=== PATIENT | female | born 1980 | race Caucasian/White ===

== ENCOUNTER 2018-02-25 11:08 | Emergency (ER) | payer BC ==
--- NOTE | 2018-02-25 11:14 | EDM.PDOC ---
ED HPI GENERAL MEDICAL PROBLEM - General Chief Complaint: General Stated Complaint: migraine BRADLEY Time Seen by Provider: 02/25/18 11:14 Source of Information: Reports: Patient, Family (), Old Records ([facility] chart/EMR) History Limitations: Reports: No Limitations - History of Present Illness INITIAL COMMENTS - FREE TEXT/NARRATIVE: The patient was brought to the emergency room via private automobile for evaluation of recurrent migraine headaches with bilateral frontal headaches initially starting behind the right eye at about midnight this evening. She has a distant history of migraine headaches as below with increased frequency on an every 2 months basis since 05/29/17. She did recently have a negative CT scan of the head as below. Patient does complain of some nausea without emesis and photophobia with today's headache similar to previous episodes. No recent history of abdominal pain, heartburn, diarrhea, melena, gross hematochezia, or any food intolerance, including fatty foods, etc.. The patient also denies any recent fever, cough, wheezing, dyspnea, etc.. She currently rates her headache at 7/10. Note that she did take to OTC Aleve 8 AM this morning. Onset: Today, Gradual Onset Date: 02/25/18 Onset Time: 00:00 Duration: Constant, Getting Worse Location: Reports: Head. Denies: Face, Neck, Chest, Abdomen, Back, Radiates to Quality: Reports: Same as Previous Episode, Stabbing, Throbbing Severity: Moderate Improves with: Reports: None Worsens with: Reports: None Context: Reports: Other (As above). Denies: Sick Contact, Trauma Associated Symptoms: Reports: Headaches, Nausea/Vomiting (No emesis). 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 Musculoskeletal History: Reports: Back Pain, Chronic, Osteoarthritis, Other ( See Below). Denies: Fracture Other Musculoskeletal History: Partial lumbarization of S1 by MRI as below. Neurological History: Reports: Headaches, Chronic, Migraines, Other (See Below) Other Neuro History: Initial migraine headaches in her teenage years with neurology consultation at that time and subsequent increased frequency of her migraine headaches since 05/31/17. - Past Imaging History Past Imaging History: Reports: CAT Scan (Negative CT scan of the head on .), MRI (MRI of the lumbar spine on 11/05/13.), Ultrasound (Soft tissue ultrasound of the right axillary region on 12/09/16.) Social & Family History - Family History Neurological: Reports: Migraines, Other (See Below) Other Neurological Family History: Mother with history of migraine headaches. - Tobacco Use Smoking Status *Q: Former Smoker Tobacco Use Within Last Twelve Months: No Years of Tobacco use: 0 Packs/Tins Daily Comment: Experimental during teenage years. Used Tobacco, but Quit: No Smoking Cessation Information Provided To Patient: No Second Hand Smoke Exposure: Yes Source of Second Hand Smoke Exposure: smokes Second Hand Smoke Education Provided: Yes - Caffeine Use Caffeine Use: Reports: None. Denies: Coffee, Energy Drinks, Soda, Tea - Alcohol Use Alcohol Use History: Yes Days Per Week of Alcohol Use: 0 Number of Drinks Per Day: 2 Number of Drinks Per Day Comment: Usually mixed drinks about 35 times per month. No previous DWIs, problems with alcohol abuse, etc. Total Drinks Per Week: 0 Alcohol Use in Last Twelve Months: Yes Alcohol Use Frequency: Socially - Recreational Drug Use Recreational Drug Use: Yes Drug Use in Last 12 Months: No Recreational Drug Type: Reports: Marijuana/Hashish (Experimental as a teenager) . 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 - Physical Exam Exam: See Below Exam Limited By: No Limitations General Appearance: Alert, WD/WN, No Apparent Distress Eye Exam: Bilateral Eye: EOMI, Normal Fundi, Normal Inspection (No nystagmus), PERRL, Other (Mild photophobia) Ears: Normal External Exam, Normal Canal, Hearing Grossly Normal, Normal TMs Nose: Normal Inspection, Normal Mucosa, No Blood Throat/Mouth: Normal Inspection, Normal Lips, Normal Teeth, Normal Gums, Normal Oropharynx, Normal Voice, No Airway Compromise. No: Dysphagia, Perioral Cyanosis Head Exam: Atraumatic, Normocephalic. No: Facial Tenderness, Sinus Tenderness Neck: Normal Inspection, Supple, Non-Tender, Full Range of Motion. No: Lymphadenopathy (L), Lymphadenopathy (R), Thyromegaly Respiratory/Chest: No Respiratory Distress, Lungs Clear, Normal Breath Sounds, No Accessory Muscle Use, Chest Non-Tender. No: Pleural Rub, Retractions Cardiovascular: Normal Peripheral Pulses, Regular Rate, Rhythm, No Edema, No Gallop, No JVD, No Murmur, No Rub. No: Gallop/S3, Gallop/S4, Friction Rub GI/Abdominal: Normal Bowel Sounds, Soft, Non-Tender, No Organomegaly, No Distention, No Abnormal Bruit, No Mass. No: Guarding (Female) Exam: Deferred Rectal (Female) Exam: Deferred Neuro Exam (Abbreviated): Alert, Oriented, CN II-XII Intact, Normal Cognition, Normal Gait, No Motor/Sensory Deficits Back Exam: Normal Inspection, Full Range of Motion. No: Muscle Spasm Extremities: Normal Inspection, Normal Range of Motion, Non-Tender, No Pedal Edema, Normal Capillary Refill. No: Linda's Sign Skin Exam: Warm, Dry, Intact, Normal Color, No Rash. No: Diaphoretic, Wound/ Incision Course - Vital Signs Last Recorded V/S: Last Vital Signs Temp 37.0 C 02/25/18 11:09 Pulse 84 02/25/18 11:09 Resp 16 02/25/18 11:09 BP 140/91 H 02/25/18 11:09 Pulse Ox 100 02/25/18 11:09 Vital Signs - 24 hr 02/25/18 11:09 Temperature [ 37.0 C Oral] Pulse, 84 Peripheral [ Pulse Oximetry] Respiratory 16 Rate Blood Pressure 140/91 H [Left Upper Arm ] O2 Sat by Pulse 100 Oximetry - Orders/Labs/Meds Orders: Active Orders 24 hr Category Date Time Status Peripheral IV Care [RC] . DIRECTED Care 02/25/18 11:19 Active Sodium Chloride 0.9% [Saline Flush] Med 02/25/18 11:18 Active 10 ml FLUSH ASDIRECTED PRN Obtain Past Medical Record [OM.PC] Routine Oth 02/25/18 11:18 Active Peripheral IV Insertion Adult [OM.PC] Routine Oth 02/25/18 11:19 Ordered Medication Orders Sodium Chloride (Saline Flush) 10 ml FLUSH ASDIRECTED PRN PRN Reason: Keep Vein Open Last Admin: 02/25/18 11:58 Dose: 10 ml Labs: None Meds: Medications Generic Name Dose Route Start Last Admin Trade Name Freq PRN Reason Stop Dose Admin Sodium Chloride 10 ml 02/25/18 11:18 02/25/18 11:58 Saline Flush FLUSH 10 ml ASDIRECTED PRN Administration Keep Vein Open Discontinued Medications Generic Name Dose Route Start Last Admin Trade Name Freq PRN Reason Stop Dose Admin Diphenhydramine HCl 50 mg 02/25/18 11:19 02/25/18 11:36 Benadryl IVPUSH 02/25/18 11:20 50 mg ONETIME ONE Administration Ketorolac Tromethamine 15 mg 02/25/18 11:20 02/25/18 11:36 Toradol IVPUSH 02/25/18 11:21 15 mg ONETIME ONE Administration Metoclopramide HCl 20 mg 02/25/18 11:19 02/25/18 11:37 Reglan IVPUSH 02/25/18 11:20 20 mg ONETIME ONE Administration - Radiology Interpretation Free Text/Narrative:: None Departure - Departure Time of Disposition: 13:10 Disposition: Home, Self-Care 01 Condition: Good Clinical Impression: Tobacco abuse counseling Migraine headache Qualifiers: Migraine type: without aura Status migrainosus presence: without status migrainosus Intractability: not intractable Qualified Code(s): G43.009 - Migraine without aura, not intractable, without status migrainosus Osteoarthritis Qualifiers: Osteoarthritis location: multiple joints Osteoarthritis type: primary Qualified Code(s): M15.0 - Primary generalized (osteo)arthritis - Discharge Information *PRESCRIPTION DRUG MONITORING PROGRAM REVIEWED*: Not Applicable *COPY OF PRESCRIPTION DRUG MONITORING REPORT IN PATIENT KARINA: Not Applicable Instructions: Health Risks of Smoking, Diphenhydramine injection, Metoclopramide injection, Migraine Headache, [id number], Ketorolac injection, Recurrent Migraine Headache Referrals: Maribeth Cooper NP [Primary Care Provider] - Forms: ED Department Discharge Additional Instructions: 1. Followup with your regular provider in 10-14 days as directed. Bring these discharge instructions with you to that visit. 2. Tylenol 650 mg by mouth every 4 hours and/or OTC Aleve 1-2 tabs by mouth every 12 hours with food as directed./needed. 3. Sedation precautions with no driving, etc. for 18 hours because of emergency room medications. 4. Ice packs to head and neck, dark and quiet room, etc. as directed until headache resolves. 5. Stop all tobacco use LAURYN as directed/per provided information and consider contacting Quit LIne, etc.. 6. Discuss possible neurology referral, preventative headache medications, etc. with your regular provider at the above follow-up visit 7. Discuss possible additional preventative medications for your headaches with your regular provider as above. Consider OTC magnesium oxide 400 mg every day as headache prevention with diarrhea precautions with this medicatiion as directed. Never initiate medications on your own, however, prior to discussing this with your regular provider. 8. Maintain a food and headache diary on a daily basis and provide this to your regular provider at each visit. - Problem List & Annotations (1) Migraine headache SNOMED Code(s): 51531377 Code(s): G43.909 - MIGRAINE, UNSP, NOT INTRACTABLE, WITHOUT STATUS MIGRAINOSUS Status: Acute Priority: High Annotation/Comment:: Overall good results with treatment in the emergency room. Secondary to increased frequency of her migraine headaches may benefit from a neurology consultation and/or preventative prophylactic migraine headache medications, including magnesium oxide, etc.. Note recent normal CT scan of the head on 05/31/17. Sedation precautions given with information provided concerning migraine headaches. She will attempt to maintain a headache diary and related to any specific foods, etc. She denies any relationship to her menses with current Mirena IUD initially placed in May 2016. Patient states that she does not need a work excuse. Qualifiers: Migraine type: without aura Status migrainosus presence: without status migrainosus Intractability: not intractable Qualified Code(s): G43.009 - Migraine without aura, not intractable, without status migrainosus (2) Osteoarthritis SNOMED Code(s): 833987732 Code(s): M19.90 - UNSPECIFIED OSTEOARTHRITIS, UNSPECIFIED SITE Status: Chronic Priority: Medium Annotation/Comment:: Stable chronic low back pain by history with good control with when necessary OTC Aleve Qualifiers: Osteoarthritis location: multiple joints Osteoarthritis type: primary Qualified Code(s): M15.0 - Primary generalized (osteo)arthritis (3) Tobacco abuse counseling SNOMED Code(s): 156597246, 961822345, [id number] Code(s): Z71.6 - TOBACCO ABUSE COUNSELING Status: Chronic Priority: Medium Annotation/Comment:: Patient and her were counseled on tobacco smoke exposure/use with tobacco cessation strongly encouraged and information provided. - Problem List Review Problem List Initiated/Reviewed/Updated: Yes - My Orders Last 24 Hours: My Active Orders 02/25/18 11:18 Sodium Chloride 0.9% [Saline Flush] 10 ml FLUSH ASDIRECTED PRN Obtain Past Medical Record [OM.PC] Routine 02/25/18 11:19 Peripheral IV Care [RC] . DIRECTED Peripheral IV Insertion Adult [OM.PC] Routine - Assessment/Plan Last 24 Hours: My Active Orders 02/25/18 11:18 Sodium Chloride 0.9% [Saline Flush] 10 ml FLUSH ASDIRECTED PRN Obtain Past Medical Record [OM.PC] Routine 02/25/18 11:19 Peripheral IV Care [RC] . DIRECTED Peripheral IV Insertion Adult [OM.PC] Routine Assessment:: As above Plan: As above. Extensive precautions were given to the patient and her , who are in agreement with the treatment plan. Extensive precautions were given to the patient, who is in agreement with the treatment plan.
[2018-02-25] MEDS: Ketorolac 15 MG/ML SDV IVPUSH ONE (11:36)
[2018-02-25] MEDS: diphenhydrAMINE 50 MG/ML SDV IVPUSH ONE (11:36)
[2018-02-25] MEDS: Metoclopramide 10 MG/2 ML SDV IVPUSH ONE (11:37)
[2018-02-25] MEDS: Sodium Chloride 0.9% 10 ML Syringe FLUSH PRN (11:58)
== END 2018-02-25 13:00 | disposition home or self-care (01) ==
LOC: LL.ED 11:08
DX: G43.009 Migraine without aura, not intractable, without status migrainosus (principal); M15.0 Primary generalized (osteo)arthritis; Z88.2 Allergy status to sulfonamides; Z79.899 Other long term (current) drug therapy; Z87.891 Personal history of nicotine dependence; Z71.6 Tobacco abuse counseling
CPT/HCPCS: 96374; 96375; 99284; J1200; J1885; J2765; J7050